=== PATIENT | male | born 1995 | race Caucasian/White ===

== ENCOUNTER 2020-09-10 01:33 | Emergency (ER) | payer OTHER, SELFPAY ==
--- NOTE | 2020-09-10 | ECG_ITS ---
Test Reason : CP Blood Pressure : / mmHG Vent. Rate : 092 BPM Atrial Rate : 092 BPM P-R Int : 144 ms QRS Dur : 092 ms QT Int : 346 ms P-R-T Axes : 060 068 038 degrees QTc Int : 427 ms Normal sinus rhythm Normal ECG When compared with ECG of 30-NOV-2016 23:45, No significant change was found Referred By: Generic ED Physician Electronically Signed By:ETTA RUSSELL
[2020-09-10 01:43] VITALS: BP 131/75; PULSE 94; RESP 16; TEMP 36.6; O2SAT 98; BMI 41.4
[2020-09-10 01:47] VITALS: PULSE 98
--- NOTE | 2020-09-10 01:48 | ED.CHESTPAIN ---
HPI - Chest Pain General Chief Complaint: Chest Pain Stated Complaint: Chest pain Time Seen by Provider: 09/10/20 01:45 Source: patient Mode of arrival: ambulatory Limitations: no limitations History of Present Illness HPI narrative: patient comes emergency room complaining of a pinching sensation in the middle of his chest. Patient states is intermittent, lasts for a few seconds, then goes away. Patient has been having the symptoms for 4 days. Patient denies any significant pain, no chest pressure, no shortness of breath. At this time, patient is asymptomatic. Patient denies trauma, no new exercises, states the patient is more pronounced when he stretches his left arm backwards. Related Data Allergies Allergy/AdvReac Type Severity Reaction Status Date / Time No Known Allergies Allergy Unverified 11/22/19 16:35 [No Known Allergies*] Review of Systems Review of Systems: Constitutional : No Weight loss, No Fever, No Chills, No Night Sweats, No Fatigue, No Malaise ENT/Mouth : No Hearing loss, No Ear Pain, No Nasal Congestion, No Sinus Pain, No Hoarseness, No sore throat, No Rhinorrhea, No Swallowing Difficulty Eyes: No Eye Pain, No Swelling, No Redness, No Foreign Body, No Discharge, No Vision Changes Cardiovascular : Intermittent pinching sensation lasting a few seconds, No SOB, No Dyspnea on Exertion, No Orthopnea, No Edema, No Palpitations Respiratory : No Cough, No Sputum, No Wheezing, No Smoke Exposure, No Dyspnea Gastrointestinal : No Nausea, No Vomiting, No Diarrhea, No Constipation, No abdominal Pain, No Hematochezia, No Melena Genitourinary : no irregular bleeding, No Dysuria, No Urinary Frequency, No Hematuria, No Urinary Incontinence, No Urgency, No Flank Pain, No Urinary Flow Changes, No Hesitancy Musculoskeletal : No joint pain, No Myalgias, No Joint Swelling Skin : No Skin Lesions, No rash Neuro : No Weakness, No Numbness, No Paresthesias, No Loss of Consciousness, No Dizziness, No Headache Psych : No Anxiety/Panic, No Depression, No SI/HI/AH/VH, No Social Issues, Heme/Lymph: No Bruising, No Bleeding,No Lymphadenopathy Endocrine : No Polyuria, No Polydipsia, No Temperature Intolerance ON LICENSE OF [facility] Social History Social History Advance Directives: No Advance Directives Information Provided: No Physical Exam Vital Signs: Vital Signs: Last Vital Signs Temp 97.9 F 09/10/20 01:43 Pulse 94 09/10/20 01:43 Resp 16 09/10/20 01:43 BP 131/75 09/10/20 01:43 Pulse Ox 98 09/10/20 01:43 Body Mass Index 41.4 Appearance: Alert. Oriented X3. No acute distress. Eyes: Pupils equal, round and reactive to light. ENT: Pharynx normal. Neck: Normal inspection. Neck supple. No lymph nodes noted. No crepitus CVS: Normal heart rate and rhythm. Pulses normal. Normal S1 and S2 Respiratory: No respiratory distress. Breath sounds normal. No Wheezing. No rales Abdomen: Soft and nontender. No rigidity. No distention. good BS x4 Skin: Skin warm and dry. Normal skin color. Normal skin turgor. Extremities: No lower extremity edema.No Lacerations. No Rash Neuro: Oriented X 3. No motor deficit. No sensory deficit. Moving all extermities. No slurred speech. Course Course Course Narrative: Patient remains asymptomatic at this time, EKG and troponin within normal limits. Wells score for PE is 0 MDM - Chest Pain Lab Data Result diagrams: 09/10/20 01:58 09/10/20 01:58 Labs: Lab Results 09/10/20 09/10/20 09/10/20 Range/Units 01:58 01:58 01:58 WBC 11.0 H (4.8-10.8) X10*3/uL RBC 5.10 (4.60-5.80) X10*6/uL Hgb 13.3 L (14.0-18.0) g/dl Hct 40.7 L (42-52) % MCV 79.8 L (80-98) fL MCH 26.1 L (27.0-33.0) pg MCHC 32.7 (31.0-36.0) g/dl RDW 14.7 (11.0-16.0) % Plt Count 279 (160-400) X10*3/uL MPV 9.1 L (9.4-12.4) fL Immature Gran % (Auto) 0.2 (0.0-0.4) % Neut % (Auto) 53.8 (45-73) % Lymph % (Auto) 35.7 (20-40) % [place] % (Auto) 9.6 (2-11) % Eos % (Auto) 0.4 (0-4) % Baso % (Auto) 0.3 (0-2) % Lymph # (Auto) 3.9 (1.2-4.9) X10*3/uL [place] # (Auto) 1.1 (0.1-1.2) X10*3/uL Eos # (Auto) 0.0 (0.0-0.4) X10*3/uL Baso # (Auto) 0.0 (0.0-0.2) X10*3/uL Abs Immat Gran (auto) 0.02 (0.00-0.03) X10*3/uL Absolute Neuts (auto) 6.0 (2.0-8.3) X10*3/uL Absolute Nucleated RBC 0.000 (0.0-0.012) X10*3/uL Nucleated RBC % (auto) 0.0 (0.0-0.2) /100WBC Sodium 141 (135-145) mmol/L Potassium 4.1 (3.3-5.1) mmol/L Chloride 101 (96-108) mmol/L Carbon Dioxide 30 H (22-29) mmol/L Anion Gap 14 (12-20) BUN 10 (9-16) mg/dL Creatinine 1.02 (0.5-1.4) mg/dL Estim Creat Clear Calc 153.2 Estimated GFR > 60 Random Glucose 91 (60-115) mg/dL Calcium 9.8 (8.4-10.2) mg/dL Troponin I High Sens < 3.5 (<3.5-35.0) ng/L ECG Data ECG #1: Attestation: I personally reviewed and interpreted this ECG as follows: ( Normal sinus rhythm, heart rate 92, no ST segment depression or elevation, no T-wave inversion, QTC 427) Discharge Plan Discharge Clinical Impression: Atypical chest pain Clinical Impression: (Ruled Out): ST elevation myocardial infarction (STEMI) Patient Disposition: Home, Self-Care Instructions: Chest Pain (ED) Additional Instructions: Please follow-up with your primary care physician tomorrow. If you have any worsening or new symptoms, please return to the emergency room or call 911
[2020-09-10 02:02] LABS: Basophils Percent Auto 0.3 % (0-2); Eosinophils Percent Auto 0.4 % (0-4); Hematocrit 40.7 % (42-52); Hemoglobin 13.3 g/dl (14.0-18.0); Imm Gran Abs Auto 0.02 X10*3/uL (0.00-0.03); Imm Gran Pct Auto 0.2 % (0.0-0.4); Lymphocytes Absolute Auto 3.9 X10*3/uL (1.2-4.9); Lymphocytes Percent Auto 35.7 % (20-40); MANUAL DIFF FLAG NO; Mean Corpuscular HGB Conc 32.7 g/dl (31.0-36.0); Mean Corpuscular Hemoglobin 26.1 pg (27.0-33.0); Mean Corpuscular Volume 79.8 fL (80-98); Mean Platelet Volume 9.1 fL (9.4-12.4); Monocytes Absolute Auto 1.1 X10*3/uL (0.1-1.2); Monocytes Percent Auto 9.6 % (2-11); Neutrophils Percent Auto 53.8 % (45-73); Platelet Count 279 X10*3/uL (160-400); Red Cell Distribution Width 14.7 % (11.0-16.0)
[2020-09-10 02:32] LABS: Anion Gap 14 (12-20); Blood Urea Nitrogen 10 mg/dL (9-16); Calcium 9.8 mg/dL (8.4-10.2); Carbon Dioxide 30 mmol/L (22-29); Chloride 101 mmol/L (96-108); Creatinine Clr Calc Pharmacy 153.2; Estimated Glomerular Filt Rate > 60; Glucose Random 91 mg/dL (60-115); Potassium 4.1 mmol/L (3.3-5.1); Sodium 141 mmol/L (135-145)
[2020-09-10 03:18] LABS: Troponin-I High Sensitivity < 3.5 ng/L (<3.5-35.0)
== END 2020-09-10 03:45 | disposition home or self-care (01) ==
PROVIDERS: Emergency Provider Emergency Medicine
DX: R07.89 Other chest pain (principal)
CPT/HCPCS: 36415; 80048; 84484; 85025; 93005; 99283; 99284

== ENCOUNTER → 2020-11-06 14:00 | Outpatient (REF) | payer OTHER, SELFPAY ==
--- NOTE | 2020-11-06 14:04 | CA_ITS ---
Transthoracic Echocardiogram Patient (Last, First, Middle): Natan Wahl, Gender: Male Date of : 1995 Age: 24 Procedure Date: 11/06/2020 Procedure Type: Transthoracic Echocardiogram Location: OP Height: 167.64 cm Weight: 122.47 kg BSA: 2.27 m2 Heart Rate: bpm BP: 114 / 50 mmHg [employer] Furnish[employer] Salesperson: HERBERT Redmond MD: José Sevilla PA-C Religious Ritual Slaughterer: Juan Miguel Sanchez MD Symptoms: R07.89 - Other chest pain Study Quality: Fair ECG Rhythm: Sinus Conclusions: - Normal study Findings Left Ventricle Normal left ventricular size, thickness, and systolic function. The visually estimated ejection fraction is between 60-65%. Regional wall motion abnormalities can not be excluded due to suboptimal endocardial definition. Spectral Doppler is indicative of a normal filling pattern. Right Ventricle Normal right ventricular cavity size and systolic function. Atria Both atria are normal in size. There is lipomatous hypertrophy of the interatrial septum. There is no evidence of interatrial shunt. Aortic Valve The aortic valve structure and function is likely normal. There is no aortic valve stenosis. There is no aortic valve regurgitation. Mitral Valve Normal mitral valve structure and function. There is trace mitral valve regurgitation. There is no mitral valve stenosis. Pulmonic Valve The pulmonic valve was not well visualized. Tricuspid Valve Likely normal tricuspid valve structure and function. There is trace tricuspid valve regurgitation. The right ventricular systolic pressure is normal. Normal right atrial pressure. There is no evidence of pulmonary hypertension. Great Vessels All visible segments of the aorta are normal in size. The pulmonary artery was not well visualized. Venous The inferior vena cava is normal in size and collapses greater than 50% with inspiration. Pericardium/Pleural There is no evidence of pericardial effusion. Prior Study Comparison No prior study available for comparison. Measurements 2D Linear Measurements RVIDd: 2.97 RVIDd Index: 1.31 IVSd: 0.97 0.6-0.9/0.6-1.0 cm LVIDd: 5.04 3.9-5.3/4.2-5.9 cm LVIDd Index: 2.22 2.4-3.2/2.2-3.1 cm/m2 LVIDs: 3.27 2.0-3.6 cm LVPWd: 1.26 0.7-1.1 cm Ao Root: 3.10 2.1-3.5 cm LA Diam: 3.80 2.7-3.8/3.0-4.0 cm LAIDs Index: 1.67 1.5-2.3 cm/m2 LV Mass: 266.96 67-162/88-224 g LV Mass Index: 117.60 43-95/49-115 g/m2 LVOT Diam: 2.10 3.0+(-)1.3 cm Mitral Valve MV Pk E: 0.86 MV PK A: 0.51 MV Decel Time: 245.00 E/A: 1.70 E'Lateral: 12.80 E'Medial: 10.60 E/E' Med: 8.10 E/E' Lat: 6.70 Aortic Valve AoV Pk James: 1.26 AoV Mn James: 0.91 AoV VTI: 0.26 AoV Pk Grad: 6.00 Aov Mn Grad: 4.00 UCHE Cont.VTI: 2.84 LVOT LVOT Pk James: 0.91 LVOT Mn James: 0.59 LVOT VTI: 0.21 LVOT Pk Grad: 3.00 LVOT Mn Grad: 2.00 LVOT Diam: 2.10 LVOT Area: 3.46 Diastolic Function MV Pk E: 0.86 MV Pk A: 0.51 E/A: 1.70 E'Medial: 10.60 E/E' Med: 8.10 E' Laterial: 12.80 E/E' Lat: 6.70 Right Ventricle TAPSE (mm): 18.00 TVS' James: 11.40 Tricuspid Valve RA Press: 3.00 Great Vessels Aorta Ao Root-2D: 3.10 2.0-3.7 cm Ao Asc: 2.70 2.1-3.4 cm Ao Arch: 2.30 Updated in Other Vendor System with Status of Final Juan Miguel Sanchez MD electronically signed on 11/07/2020 11:50:44 AM with status of Final
== END ==
LOC: HO.CARD 14:00
PROVIDERS: Visit Provider Physician Assistant
DX: R07.89 Other chest pain (principal)
CPT/HCPCS: 93306

== ENCOUNTER 2021-04-19 16:13 | Emergency (ER) | payer OTHER, SELFPAY ==
--- NOTE | ~2021-04-19 | XR_ITS ---
EXAMINATION: XR CHEST CLINICAL INFORMATION: Chest pain COMPARISON: 11/30/2016 TECHNIQUE: 2 views of the chest were obtained. FINDINGS: No significant abnormality is noted involving the heart, lungs, mediastinum, bony thorax or soft tissues. XR/XR chest 2V IMPRESSION: Unremarkable examination.
[2021-04-19 16:15] VITALS: BP 155/99; PULSE 95; RESP 20; TEMP 36.7; O2SAT 98; BMI 43.0
--- NOTE | 2021-04-19 16:15 | ECG_ITS ---
Test Reason : CHEST PAIN Blood Pressure : / mmHG Vent. Rate : 080 BPM Atrial Rate : 080 BPM P-R Int : 148 ms QRS Dur : 102 ms QT Int : 376 ms P-R-T Axes : 046 063 037 degrees QTc Int : 433 ms Normal sinus rhythm Normal ECG When compared with ECG of 10-SEP-2020 01:43, No significant change was found Referred By: Generic ED Physician Electronically Signed By:ELIANA ERIC MD
[2021-04-19 16:43] LABS: MANUAL DIFF FLAG NO
[2021-04-19 16:44] LABS: Basophils Percent Auto 0.2 % (0-2); Eosinophils Percent Auto 0.4 % (0-4); Hematocrit 40.2 % (42.0-52.0); Hemoglobin 13.1 g/dl (14.0-18.0); Imm Gran Abs Auto 0.02 X10*3/uL (0.00-0.03); Imm Gran Pct Auto 0.2 % (0.0-0.4); Lymphocytes Absolute Auto 2.2 X10*3/uL (1.2-4.9); Lymphocytes Percent Auto 24.5 % (20-40); Mean Corpuscular HGB Conc 32.6 g/dl (31.0-36.0); Mean Corpuscular Hemoglobin 25.9 pg (27.0-33.0); Mean Corpuscular Volume 79.4 fL (80.0-98.0); Mean Platelet Volume 9.3 fL (9.4-12.4); Monocytes Absolute Auto 0.5 X10*3/uL (0.1-1.2); Monocytes Percent Auto 4.9 % (2-11); Neutrophils Absolute Auto 6.4 x10*3/uL (2.0-8.3); Neutrophils Percent Auto 69.8 % (45-73); Platelet Count 277 X10*3/uL (160-400); Red Blood Count 5.06 X10*6/uL (4.60-5.80); Red Cell Distribution Width 15.1 % (11.0-16.0); White Blood Count 9.2 X10*3/uL (4.8-10.8)
[2021-04-19 17:05] LABS: Alanine Aminotransferase 20 U/L (0-40); Albumin Level 4.4 g/dL (3.5-5.0); Alkaline Phosphatase 84 U/L (39-117); Anion Gap 11 (12-20); Aspartate Amino Transferase 19 U/L (5-37); Bilirubin Direct < 0.2 mg/dL (0.0-0.5); Bilirubin Total 0.3 mg/dL (0.0-1.0); Blood Urea Nitrogen 13 mg/dL (9-16); Calcium 9.5 mg/dL (8.4-10.2); Carbon Dioxide 30 mmol/L (22-29); Chloride 103 mmol/L (96-108); Creatinine Clr Calc Pharmacy 171.7; Estimated Glomerular Filt Rate > 60; Glucose Random 99 mg/dL (60-115); Lipase 21 U/L (8-78); Potassium 4.5 mmol/L (3.3-5.1); Sodium 139 mmol/L (135-145); Total Protein 7.5 g/dL (6.5-8.0)
[2021-04-19 17:12] LABS: Troponin-I High Sensitivity < 3.5 ng/L (<3.5-35.0)
--- NOTE | 2021-04-19 17:43 | ED.CHESTPAIN ---
HPI - Chest Pain General Chief Complaint: Chest Pain Stated Complaint: chest pain Time Seen by Provider: 04/19/21 17:43 Source: patient Mode of arrival: ambulatory Limitations: no limitations History of Present Illness HPI narrative: 25-year-old male presents with several days of chest tightness that increases with movement. States that it feels more muscular skeletal, start sternal and radiates out to the left chest wall and arm. Does not report any other prodromal symptoms. 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 MD complaint: chest pain and chest discomfort Onset (ago): day(s) (2) Timing of current episode: constant Prior episodes: Yes Onset: during rest and during exertion Pain location: substernal and left chest Pain radiation: left arm Severity: mild Quality: tightness Relieving factors: rest Exacerbating factors: movement Treatment prior to arrival: other (Motrin) Risk Factors Coronary artery disease risk factors: none Thoracic aortic dissection risk factors: none Related Data Previous Rx's Medication Instructions Recorded hydroxyzine HCl 25 mg tablet 25 mg PO BID PRN 4 Days #8 tab 09/10/20 Allergies Allergy/AdvReac Type Severity Reaction Status Date / Time No Known Allergies Allergy Verified 09/10/20 16:30 [No Known Allergies*] Review of Systems Review of Systems: Constitutional: No Fever, No Chills ENT/Mouth: No Ear Pain, No Hoarseness, No sore throat Eyes: No Eye Pain, No Swelling, No Redness, No Foreign Body Cardiovascular: No Chest Pain, No SOB Respiratory: No Cough, No Dyspnea Gastrointestinal: No Nausea, No Vomiting, No Diarrhea, No abdominal Pain Genitourinary: No Dysuria, No Hematuria Musculoskeletal: positive chest wall pain, No Myalgias, No Joint Swelling Skin: No Skin lacerations, No rash Neuro: No Weakness, No Numbness, No Paresthesias, No Loss of Consciousness, No Dizziness, No Headache Psych: No Anxiety/Panic, No Depression Heme/Lymph: no easy bruising, no Lymphadenopathy Endocrine: No Polyuria, No Polydipsia Yes all other systems are reviewed and are negative PMFSH Past Medical History Attestation statement: The following information was validated with the patient. Source: old records reviewed Surgical History History of circumcision Family History Family History Mother Hypertension Father Diabetes Kidney failure Heart attack, Onset Age: 43 Social History Social History Housing: House Alcohol intake: current Alcohol intake frequency: holidays/special occasions only Patient Tobacco Use Status: Never used Tobacco Advance Directives: No Advance Directives Information Provided: Yes service: No Current occupational status: unemployed Physical Exam Vital Signs: Vital Signs: Last Vital Signs Temp 98.1 F 04/19/21 16:15 Pulse 95 04/19/21 16:15 Resp 20 04/19/21 16:15 BP 155/99 H 04/19/21 16:15 Pulse Ox 98 04/19/21 16:15 BMI result Body Mass Index 43.0 Appearance: Alert. Oriented X3. No acute distress. Eyes: Pupils equal, round and reactive to light. EOMI. Sclerae nonicteric ENT: Pharynx normal. Moist mucous membranes. Neck: Normal inspection. Neck supple. No vertebral tenderness or step-offs. No cervical lymphadenopathy. CVS: Normal heart rate and rhythm. Apical pulse equal pulses to extremities. No edema. Chest wall reproducibly tender to palpation. Respiratory: No respiratory distress. Breath sounds normal. Abdomen: Soft and nontender. Skin: Skin warm and dry. Normal skin color. Normal skin turgor. Extremities: Gait well-balanced well coordinated. Neuro: No motor deficit. No sensory deficit. Cranial nerves 2-12 intact. Course Course Course Narrative: 25-year-old male presents with chest wall pain that started approximately 2 days ago. Pain starts sternal radiates to the left pectoral muscle and down his left arm. Patient does not report any prodromal symptoms, denies shortness of breath, dizziness, lightheadedness, of breath on exertion, nausea, vomiting, changes in vision or any other concerning symptoms. Lab values drawn while patient was in the emergency department waiting room, H&H is 13.1/40.2 which is consistent with prior values dating back to 09/10/2020. Chemistries are unremarkable, troponin is negative. EKG is normal sinus with no changes compared to prior or indication of ST elevation or depression. Most likely to be costochondritis or musculoskeletal strain. Patient is agreeable to taking [id number] Motrin and Tylenol as needed for pain management. Id patient verbalizes understanding of and agrees plan of care discharge home. Patient also understands signs and symptoms indicating need for emergent intervention. MDM - Chest Pain Differential Diagnosis Differential diagnosis: Likely pneumothorax, atypical chest pain, st elevation myocardial infarction and chest pain Differential diagnosis: Musculoskeletal strain Medical Records Data Attestation: I reviewed the patient's medical records. Lab Data Attestation: I reviewed the patient's lab results. Result diagrams: 04/19/21 16:37 04/19/21 16:37 Labs: Lab Results 04/19/21 04/19/21 04/19/21 Range/Units 16:37 16:37 16:37 WBC 9.2 (4.8-10.8) X10*3/uL RBC 5.06 (4.60-5.80) X10*6/uL Hgb 13.1 L (14.0-18.0) g/dl Hct 40.2 L (42.0-52.0) % MCV 79.4 L (80.0-98.0) fL MCH 25.9 L (27.0-33.0) pg MCHC 32.6 (31.0-36.0) g/dl RDW 15.1 (11.0-16.0) % Plt Count 277 (160-400) X10*3/uL MPV 9.3 L (9.4-12.4) fL Immature Gran % (Auto) 0.2 (0.0-0.4) % Neut % (Auto) 69.8 (45-73) % Lymph % (Auto) 24.5 (20-40) % [place] % (Auto) 4.9 (2-11) % Eos % (Auto) 0.4 (0-4) % Baso % (Auto) 0.2 (0-2) % Lymph # (Auto) 2.2 (1.2-4.9) X10*3/uL [place] # (Auto) 0.5 (0.1-1.2) X10*3/uL Eos # (Auto) 0.0 (0.0-0.4) X10*3/uL Baso # (Auto) 0.0 (0.0-0.2) X10*3/uL Abs Immat Gran (auto) 0.02 (0.00-0.03) X10*3/uL Absolute Neuts (auto) 6.4 (2.0-8.3) x10*3/uL Absolute Nucleated RBC 0.000 (0.0-0.012) X10*3/uL Nucleated RBC % (auto) 0.0 (0.0-0.2) /100WBC Sodium 139 (135-145) mmol/L Potassium 4.5 (3.3-5.1) mmol/L Chloride 103 (96-108) mmol/L Carbon Dioxide 30 H (22-29) mmol/L Anion Gap 11 L (12-20) BUN 13 (9-16) mg/dL Creatinine 0.84 (0.5-1.4) mg/dL Estim Creat Clear Calc 171.7 Estimated GFR > 60 Random Glucose 99 (60-115) mg/dL Calcium 9.5 (8.4-10.2) mg/dL Total Bilirubin 0.3 (0.0-1.0) mg/dL Direct Bilirubin < 0.2 (0.0-0.5) mg/dL AST 19 (5-37) U/L ALT 20 (0-40) U/L Alkaline Phosphatase 84 (39-117) U/L Troponin I High Sens < 3.5 (<3.5-35.0) ng/L Total Protein 7.5 (6.5-8.0) g/dL Albumin 4.4 (3.5-5.0) g/dL Lipase 21 (8-78) U/L Imaging Data Chest x-ray: Attestation: I personally reviewed and interpreted this imaging study as follows: Radiologist's impression: EXAMINATION: XR CHEST CLINICAL INFORMATION: Chest pain COMPARISON: 11/30/2016 TECHNIQUE: 2 views of the chest were obtained. FINDINGS: No significant abnormality is noted involving the heart, lungs, mediastinum, bony thorax or soft tissues. XR/XR chest 2V IMPRESSION: Unremarkable examination. ECG Data ECG #1: Attestation: I personally reviewed and interpreted this ECG as follows: ECG interpretation date: 04/19/21 ECG interpretation time: 16:28 Prior ECG tracings: available for review Interpretation: Vent. rate 80 BPM NC interval 148 ms QRS duration 102 ms QT/QTc 376/433 ms P-R-T axes 46 63 37 Normal sinus rhythm Normal ECG When compared with ECG of 10-SEP-2020 01:43, No significant change was found Discharge Plan Discharge Clinical Impression: Non-cardiac chest pain, Costochondritis Patient Disposition: Home, Self-Care Instructions: Costochondritis (ED), Noncardiac Chest Pain (ED) Additional Instructions: You were evaluated for chest pain. EKG is normal sinus rhythm, troponin is negative. All other lab values are within your normal limits. Chest x-ray is negative Your chest pain is most likely costochondritis versus musculoskeletal strain. You must follow-up with primary care physician for further follow-up. Thank you for choosing this emergency department for evaluation. Please follow-up with primary care physician as needed. Return to the emergency department for any new, concerning, or worsening symptoms. Prescriptions: No Action hydroxyzine HCl 25 mg tablet 25 mg PO BID PRN (Reason: itching) 4 Days Qty: 8 0RF Interventions: ED Discharge Assessment Last Done: 04/19/21 18:15 Discharge Date/Time: 04/19/21 18:33
== END 2021-04-19 18:33 | disposition home or self-care (01) ==
PROVIDERS: Emergency Provider Emergency Medicine; PCP Physician Assistant
DX: R07.89 Other chest pain (principal); M79.602 Pain in left arm; M94.0 Chondrocostal junction syndrome [Tietze]; Z79.899 Other long term (current) drug therapy
CPT/HCPCS: 36415; 71046; 80048; 80076; 83690; 84484; 85025; 93005; 99284

== ENCOUNTER 2021-10-25 18:07 | Emergency (ER) | payer OTHER, SELFPAY ==
--- NOTE | ~2021-10-25 | CT_ITS ---
EXAMINATION: NONCONTRAST HEAD CT NONCONTRAST CERVICAL SPINE CT INDICATION INFORMATION: Fall COMPARISON: None TECHNIQUE: Separate noncontrast CT examinations of the head and cervical spine were performed. Coronal and sagittal images were created for each examination at the technologist workstation. This CT examination was performed using dose optimization techniques as appropriate, variously including the following: *Automated exposure control *Adjustment of mA and/or kV according to patient size (this includes techniques or standardized protocols for targeted exams where dose is matched to indication/reason for exam; i.e. extremities or head) *Use of iterative reconstruction technique DLP: 1624 mGy-cm FINDINGS: Head: There is no evidence of acute intracranial hemorrhage or territorial infarction. No abnormal mass effect or midline shift is seen. Garcia to white matter differentiation is well preserved. No extra-axial fluid collections are identified. No hydrocephalus. No significant volume loss. There is no abnormal attenuation within the brain parenchyma. No acute osseous or soft tissue abnormality. The mastoid air cells and visualized portions of the paranasal sinuses are well aerated. Cervical spine: There is anatomic alignment of the vertebral bodies and posterior elements. The atlantoaxial and atlantooccipital articulations are intact. Vertebral body heights and intervertebral disc spaces are maintained. No evidence of acute fracture. No prevertebral soft tissue swelling. Visualized portions of the lung apices are unremarkable. The thyroid gland is unremarkable. CT/CT head/brain wo con IMPRESSION: 1. No acute intracranial finding. 2. No fracture or malalignment of the cervical spine.
--- NOTE | ~2021-10-25 | CT_ITS ---
EXAMINATION: NONCONTRAST HEAD CT NONCONTRAST CERVICAL SPINE CT INDICATION INFORMATION: Fall COMPARISON: None TECHNIQUE: Separate noncontrast CT examinations of the head and cervical spine were performed. Coronal and sagittal images were created for each examination at the technologist workstation. This CT examination was performed using dose optimization techniques as appropriate, variously including the following: *Automated exposure control *Adjustment of mA and/or kV according to patient size (this includes techniques or standardized protocols for targeted exams where dose is matched to indication/reason for exam; i.e. extremities or head) *Use of iterative reconstruction technique DLP: 1624 mGy-cm FINDINGS: Head: There is no evidence of acute intracranial hemorrhage or territorial infarction. No abnormal mass effect or midline shift is seen. Garcia to white matter differentiation is well preserved. No extra-axial fluid collections are identified. No hydrocephalus. No significant volume loss. There is no abnormal attenuation within the brain parenchyma. No acute osseous or soft tissue abnormality. The mastoid air cells and visualized portions of the paranasal sinuses are well aerated. Cervical spine: There is anatomic alignment of the vertebral bodies and posterior elements. The atlantoaxial and atlantooccipital articulations are intact. Vertebral body heights and intervertebral disc spaces are maintained. No evidence of acute fracture. No prevertebral soft tissue swelling. Visualized portions of the lung apices are unremarkable. The thyroid gland is unremarkable. CT/CT cervical spine wo con IMPRESSION: 1. No acute intracranial finding. 2. No fracture or malalignment of the cervical spine.
[2021-10-25 20:42] VITALS: BP 122/70; PULSE 80; RESP 20; TEMP 36.6; O2SAT 98; BMI 41.1
--- NOTE | 2021-10-25 23:18 | ED.FALL ---
HPI - Fall General Chief Complaint: Fall Stated Complaint: fall t-1 headache and forearm abrasion Time Seen by Provider: 10/25/21 23:03 Source: patient Mode of arrival: ambulatory Limitations: no limitations History of Present Illness HPI Narrative: 25 yo male with no sig PMH here with c/o R forearm laceration superficial in nature 12+ hours ago already closed after cutting it on glass - also struck head when falling backwards feels whoozy with headache. complaint: fall Onset (ago): day(s) (2am today ) Fall from: standing Fall witnessed: yes, by bystander Place fall occurred: home Loss of consciousness: none Prolonged down time: no Symptoms prior to fall: none Context: tripped/slipped Location of injury: head and neck Location of injury - extremities: right: forearm Severity: moderate Quality: dull and aching Associated symptoms (after fall): headache and other (laceration) Related Data Previous Rx's Medication Instructions Recorded hydroxyzine HCl 25 mg tablet 25 mg PO BID PRN itching 4 days #8 09/10/20 tabs Allergies Allergy/AdvReac Type Severity Reaction Status Date / Time No Known Allergies Allergy Verified 09/10/20 16:30 [No Known Allergies*] Review of Systems Review of Systems: Constitutional : No Fever, No Chills, No Fatigue ENT/Mouth : No sore throat, No Rhinorrhea Eyes: No Eye Pain, No Swelling, No Redness Cardiovascular : No Chest Pain, No SOB, No Dyspnea on Exertion Respiratory : No Cough, No Sputum Gastrointestinal : No Nausea, No Vomiting, No Diarrhea, No abdominal Pain Genitourinary : No Dysuria, No Urinary Frequency, No Hematuria, Musculoskeletal : No joint pain, No Myalgias, No Joint Swelling Skin : No Skin Lesions, No rash, pos laceration Neuro : No Weakness, No Numbness, No Dizziness, positive Headache Psych : No Anxiety/Panic, No Depression Heme/Lymph: No Bruising, No Bleeding,No Lymphadenopathy Endocrine : No Polyuria, No Polydipsia All other systems reviewed and are negative PMF Past Medical History Medical History Anxiety Surgical History History of circumcision Family History Family History Mother Hypertension Father Diabetes Kidney failure Heart attack, Onset Age: 43 Social History Social History Housing: House Alcohol intake: current Alcohol intake frequency: holidays/special occasions only Patient Tobacco Use Status: Never used Tobacco Advance Directives: No Advance Directives Information Provided: No service: No Current occupational status: unemployed Physical Exam Vital Signs: Vital Signs: Last Vital Signs Temp 97.8 F 10/25/21 20:42 Pulse 80 10/25/21 20:42 Resp 20 10/25/21 20:42 BP 122/70 10/25/21 20:42 Pulse Ox 98 10/25/21 20:42 O2 Del Method 10/25/21 20:42 BMI result Body Mass Index 41.1 Appearance: Alert. Oriented X3. No acute distress. Eyes: Pupils equal, round and reactive to light. ENT: Pharynx normal. Contusion to posterior scalp Neck: Normal inspection. ttp lower cervical spine no step offs CVS: Normal heart rate and rhythm. Pulses normal. Respiratory: No respiratory distress. Breath sounds normal. Abdomen: Soft and nontender. Skin: Skin warm and dry. Normal skin color. Normal skin turgor. Extremities: No lower extremity edema. R posterior forearm well approximated old appearing 3cm linear laceration Neuro: Oriented X 3. No motor deficit. No sensory deficit. Course Course Course Narrative: CT head and cspine negative MDM - Fall MDM Narrative Medical decision making narrative: 25 yo male s/p fall with head strike no LOC but c/o headache and neck pain CT head/cspine ordered. Also has delayed 12+ hours of laceration to R forearm cannot close at this time and wound is healing well. No other injuries reported. Discharge Plan Discharge Clinical Impression: Forearm laceration Qualifiers: Encounter type: initial encounter Laterality: right Qualified Code(s): S51.811A - Laceration without foreign body of right forearm, initial encounter Head injury Qualifiers: Encounter type: initial encounter Qualified Code(s): S09.90XA - Unspecified injury of head, initial encounter Acute whiplash injury Qualifiers: Encounter type: initial encounter Qualified Code(s): S13.4XXA - Sprain of ligaments of cervical spine, initial encounter Patient Disposition: Home, Self-Care Instructions: Head Injury (ED), Laceration (ED), Cervical Strain (ED) Additional Instructions: return to ED for any worsening symptoms or concerns CT head and cervical spine normal no acute findings continue to keep laceration clean and covered do not go swimming until closed this will take about 7 days Prescriptions: No Action hydroxyzine HCl 25 mg tablet 25 mg PO BID PRN (Reason: itching) 4 Days Qty: 8 0RF Stand Alone Forms: Work/School Release
== END 2021-10-26 00:34 | disposition home or self-care (01) ==
PROVIDERS: Emergency Provider Emergency Medicine; PCP Physician Assistant
DX: S51.811A Laceration without foreign body of right forearm, initial encounter (principal); S50.811A Abrasion of right forearm, initial encounter; S09.90XA Unspecified injury of head, initial encounter; S13.4XXA Sprain of ligaments of cervical spine, initial encounter; R51.9 Headache, unspecified; M54.2 Cervicalgia; W25.XXXA Contact with sharp glass, initial encounter; Y93.9 Activity, unspecified; Y92.9 Unspecified place or not applicable; Y99.9 Unspecified external cause status; Z79.899 Other long term (current) drug therapy
CPT/HCPCS: 70450; 72125; 99282; 99283

== ENCOUNTER 2022-07-27 14:02 | Outpatient (REF) | payer OTHER, SELFPAY ==
[2022-07-27 14:16] LABS: MANUAL DIFF FLAG NO
[2022-07-27 15:11] LABS: Basophils Percent Auto 0.3 % (0-2); Eosinophils Percent Auto 0.5 % (0-4); Hematocrit 43.2 % (42.0-52.0); Hemoglobin 13.9 g/dl (14.0-18.0); Imm Gran Abs Auto 0.02 X10*3/uL (0.00-0.03); Imm Gran Pct Auto 0.3 % (0.0-0.4); Lymphocytes Absolute Auto 2.6 X10*3/uL (1.2-4.9); Lymphocytes Percent Auto 35.1 % (20-40); Mean Corpuscular HGB Conc 32.2 g/dl (31.0-36.0); Mean Corpuscular Hemoglobin 26.3 pg (27.0-33.0); Mean Corpuscular Volume 81.8 fL (80.0-98.0); Monocytes Absolute Auto 0.6 X10*3/uL (0.1-1.2); Monocytes Percent Auto 7.5 % (2-11); Neutrophils Absolute Auto 4.1 x10*3/uL (2.0-8.3); Neutrophils Percent Auto 56.3 % (45-73); Platelet Count 292 X10*3/uL (160-400); Red Blood Count 5.28 X10*6/uL (4.60-5.80); Red Cell Distribution Width 15.4 % (11.0-16.0); White Blood Count 7.3 X10*3/uL (4.8-10.8)
[2022-07-27 15:44] LABS: Alanine Aminotransferase 21 U/L (0-40); Albumin Level 4.5 g/dL (3.5-5.0); Alkaline Phosphatase 79 U/L (39-117); Anion Gap 13 (12-20); Aspartate Amino Transferase 16 U/L (5-37); Bilirubin Total 0.4 mg/dL (0.0-1.0); Blood Urea Nitrogen 10 mg/dL (9-16); Calcium 9.8 mg/dL (8.4-10.2); Carbon Dioxide 30 mmol/L (22-29); Chloride 104 mmol/L (96-108); Estimated Glomerular Filt Rate > 60; Glucose Fasting 79 mg/dL (60-99); Magnesium 2.1 mg/dL (1.6-2.6); Potassium 4.6 mmol/L (3.3-5.1); Sodium 142 mmol/L (135-145); Total Protein 7.6 g/dL (6.5-8.0)
[2022-07-27 16:12] LABS: Folate 12.8 ng/mL (> or = 4.0); TSH reflex Free T4 1.17 uIU/mL (0.32-4.0); Vitamin B12 495 pg/mL (200-900); Vitamin D 25-OH Total 9.5 ng/mL (>30)
== END 2022-07-27 14:03 | disposition home or self-care (01) ==
LOC: HO.LAB 14:02
PROVIDERS: PCP Physician Assistant; Visit Provider Nurse Practitioner Family
DX: Z00.00 Encounter for general adult medical examination without abnormal findings (principal); M54.2 Cervicalgia; Z13.29 Encounter for screening for other suspected endocrine disorder; E55.9 Vitamin D deficiency, unspecified; E66.01 Morbid (severe) obesity due to excess calories
CPT/HCPCS: 36415; 80053; 82306; 82607; 82746; 83735; 84443; 85025

== ENCOUNTER → 2022-08-05 09:57 | Outpatient (BNVA) | payer OTHER, SELFPAY | PROVIDERS: PCP Physician Assistant; Visit Provider Dietitian, Registered | DX: E66.01 Morbid (severe) obesity due to excess calories (principal); Z68.41 Body mass index [BMI] 40.0-44.9, adult | CPT/HCPCS: 97802 ==

== ENCOUNTER 2022-10-05 14:35 | Outpatient (AMB) | payer OTHER, SELFPAY ==
[2022-10-05 14:39] VITALS: BMI 43.9
--- NOTE | 2022-10-05 14:39 | A.OFFVIS_ITS ---
Intake VS Expanded 10/05/22 14:39 Height 5 ft 6 in Weight 272 lb 0.807 oz BMI 43.9 Intake Visit Reasons: obesity Allergies No Known Allergies [No Known Allergies*] Allergy (Verified 07/27/22 13:45) HPI Nutrition Presentation Details Pt presents for MNT follow up for obesity Pt reports working n meal planning. Was on vacation recently. C/o increased appetite Trying new food combination: flavors Most Recent Diabetes Results: Creatinine 0.83 mg/dL (0.5-1.4) 07/27/22 Blood Urea Nitrogen 10 mg/dL (9-16) 07/27/22 Sodium 142 mmol/L (135-145) 07/27/22 Potassium 4.6 mmol/L (3.3-5.1) 07/27/22 Chloride 104 mmol/L (96-108) 07/27/22 Carbon Dioxide 30 mmol/L (22-29) H 07/27/22 Calcium 9.8 mg/dL (8.4-10.2) 07/27/22 AST 16 U/L (5-37) 07/27/22 ALT 21 U/L (0-40) 07/27/22 Total Protein 7.6 g/dL (6.5-8.0) 07/27/22 Albumin 4.5 g/dL (3.5-5.0) 07/27/22 [facility] Medical History Anxiety Surgical History History of circumcision Family History Mother Hypertension Father Diabetes Kidney failure Heart attack, Onset Age: 43 Social History Housing: House Alcohol intake: current Alcohol intake frequency: holidays/special occasions only Patient Tobacco Use Status: Never used Tobacco service: No Current occupational status: unemployed Cognitive needs: No Hearing needs: No Vision needs: No Assessment & Plan Assessment & Plan (1) Morbid obesity with BMI of 40.0-44.9, adult: Code(s): E66.01 - Morbid (severe) obesity due to excess calories; Z68.41 - Body mass index [BMI] 40.0-44.9, adult Plan: Used weight: 123 kg Est kcal needs as per MSJ: 2589 (40% carb, 30% protein/fat) Est fluid needs as per 25-30 ml/d: 3075- 3690 Est prot per day as per 1 g/kg bw: 123 g/d Recommend fiber intake : 8-10 g per day and gradually increase to 35-38 g for men or as tolerated Recommend sodium intake per day : less than 2000 mg Educated patient on: ( R = reviewed V = verbalizes understanding N/R = needs review N/A = not applicable * Food sources of carbohydrate, adequate serving sizes and its role in various health conditions: R * Differences between complex carbohydrates a simple carbohydrates, role of fiber in diet: R * Differences between types of fats and role in diet (mono on saturated fat fatty acids, saturated fatty acids, trans fats): R basic low-fat concepts * Food sources of sodium in salt and healthy modifications for heart health in kidney health: NR * Healthy plate method concept: R * Physical activity: Benefits a precaution: NR Patient Instructions: Choose small plate in a consistent manner Read food labels, work on reducing sugars from sauces Goal by next follow up 5-8 lbs less Coding Level of Care Code Nutr Indiv Subseq (41258) Diagnoses Morbid obesity with BMI of 40.0-44.9, adult E66.01; Z68.41 Time Spent (min) 30
== END 2022-10-05 15:09 | disposition home or self-care (01) ==
PROVIDERS: PCP Physician Assistant; Visit Provider Dietitian, Registered
DX: E66.01 Morbid (severe) obesity due to excess calories (principal); Z68.41 Body mass index [BMI] 40.0-44.9, adult

== ENCOUNTER → 2022-10-05 14:35 | Outpatient (BNVA) | payer OTHER, SELFPAY | PROVIDERS: PCP Physician Assistant; Visit Provider Dietitian, Registered | DX: E66.9 Obesity, unspecified (principal); Z68.41 Body mass index [BMI] 40.0-44.9, adult; Z71.3 Dietary counseling and surveillance | CPT/HCPCS: 97803 ==

== ENCOUNTER 2022-12-06 13:58 | Outpatient (AMB) | payer OTHER, SELFPAY ==
[2022-12-06 14:05] VITALS: BMI 43.3
--- NOTE | 2022-12-06 14:05 | A.OFFVIS_ITS ---
Intake VS Expanded 12/06/22 14:05 Height 5 ft 6 in Weight 268 lb 4.841 oz BMI 43.3 Intake Visit Reasons: obesity/ Confirmed Allergies No Known Allergies [No Known Allergies*] Allergy (Verified 07/27/22 13:45) HPI Nutrition Presentation Details Pt presents tp MNT f/u for obesity Pt reports working on reducing on snack, feeling comfortable with modifications beverages: water with flavors , diluting juices with water 74 oz of fluid per day physical activity: weight lifting and cardio 5 times weeks 45 minutes EPTH/SMoking: denies Most Recent Diabetes Results: Creatinine 0.83 mg/dL (0.5-1.4) 07/27/22 Blood Urea Nitrogen 10 mg/dL (9-16) 07/27/22 Sodium 142 mmol/L (135-145) 07/27/22 Potassium 4.6 mmol/L (3.3-5.1) 07/27/22 Chloride 104 mmol/L (96-108) 07/27/22 Carbon Dioxide 30 mmol/L (22-29) H 07/27/22 Calcium 9.8 mg/dL (8.4-10.2) 07/27/22 AST 16 U/L (5-37) 07/27/22 ALT 21 U/L (0-40) 07/27/22 Total Protein 7.6 g/dL (6.5-8.0) 07/27/22 Albumin 4.5 g/dL (3.5-5.0) 07/27/22 PFSH Medical History Anxiety Surgical History History of circumcision Family History Mother Hypertension Father Diabetes Kidney failure Heart attack, Onset Age: 43 Social History Housing: House Alcohol intake: current Alcohol intake frequency: holidays/special occasions only Patient Tobacco Use Status: Never used Tobacco service: No Current occupational status: unemployed Cognitive needs: No Hearing needs: No Vision needs: No Assessment & Plan Assessment & Plan (1) Morbid obesity with BMI of 40.0-44.9, adult: Code(s): E66.01 - Morbid (severe) obesity due to excess calories; Z68.41 - Body mass index [BMI] 40.0-44.9, adult Plan: Used weight: 123 kg Est kcal needs as per MSJ: 2589 (40% carb, 30% protein/fat) Est fluid needs as per 25-30 ml/d: 3075- 3690 Est prot per day as per 1 g/kg bw: 123 g/d Recommend fiber intake : 8-10 g per day and gradually increase to 35-38 g for men or as tolerated Recommend sodium intake per day : less than 2000 mg Educated patient on: ( R = reviewed V = verbalizes understanding N/R = needs review N/A = not applicable * Food sources of carbohydrate, adequate serving sizes and its role in various health conditions: R * Differences between complex carbohydrates a simple carbohydrates, role of fiber in diet: R * Differences between types of fats and role in diet (mono on saturated fat fatty acids, saturated fatty acids, trans fats): R basic low-fat concepts * Food sources of sodium in salt and healthy modifications for heart health in kidney health: NR * Healthy plate method concept: R * Physical activity: Benefits a precaution: NR Patient Instructions: Switch to smaller plate for second servings/ switch to smaller cups Drink more water as you increase on your vegetables and fiber intake to prevent constipation Take vitamin D aim at reaching 100% daily value of vitamin D (fortified foods : low fat milk/yogurt/almond milk) goal 5-8 lbs weight loss by next follow up Coding Level of Care Code Nutr Indiv Subseq (92313) Diagnoses Morbid obesity with BMI of 40.0-44.9, adult E66.01; Z68.41 Time Spent (min) 20
== END 2022-12-06 14:25 | disposition home or self-care (01) ==
PROVIDERS: PCP Physician Assistant; Visit Provider Dietitian, Registered
DX: E66.01 Morbid (severe) obesity due to excess calories (principal); Z68.41 Body mass index [BMI] 40.0-44.9, adult

== ENCOUNTER → 2022-12-06 13:58 | Outpatient (BNVA) | payer OTHER, SELFPAY | PROVIDERS: PCP Physician Assistant; Visit Provider Dietitian, Registered | DX: E66.01 Morbid (severe) obesity due to excess calories (principal); Z68.41 Body mass index [BMI] 40.0-44.9, adult; Z71.3 Dietary counseling and surveillance | CPT/HCPCS: 97803 ==

== ENCOUNTER 2022-12-21 22:57 | Emergency (ER) | payer OTHER, SELFPAY ==
--- NOTE | 2022-12-21 | ECG_ITS ---
Test Reason : CHEST PAIN Blood Pressure : / mmHG Vent. Rate : 086 BPM Atrial Rate : 086 BPM P-R Int : 152 ms QRS Dur : 094 ms QT Int : 360 ms P-R-T Axes : 062 063 055 degrees QTc Int : 430 ms Normal sinus rhythm Normal ECG When compared with ECG of 19-APR-2021 16:28, No significant change was found Referred By: Generic ED Physician Electronically Signed By:GISELLE CABRERA MD
[2022-12-21 23:07] VITALS: BP 141/81; PULSE 92; RESP 18; TEMP 36.6; O2SAT 98; BMI 42.8
[2022-12-22 01:45] LABS: MANUAL DIFF FLAG NO
[2022-12-22 01:46] LABS: Basophils Percent Auto 0.3 % (0-2); Eosinophils Absolute Auto 0.1 X10*3/uL (0.0-0.4); Eosinophils Percent Auto 0.8 % (0-4); Hematocrit 43.9 % (42.0-52.0); Hemoglobin 14.1 g/dl (14.0-18.0); Imm Gran Abs Auto 0.03 X10*3/uL (0.00-0.03); Imm Gran Pct Auto 0.3 % (0.0-0.4); Lymphocytes Percent Auto 30.1 % (20-40); Mean Corpuscular HGB Conc 32.1 g/dl (31.0-36.0); Mean Corpuscular Hemoglobin 25.9 pg (27.0-33.0); Mean Corpuscular Volume 80.7 fL (80.0-98.0); Mean Platelet Volume 9.2 fL (9.4-12.4); Monocytes Absolute Auto 0.8 X10*3/uL (0.1-1.2); Neutrophils Percent Auto 60.5 % (45-73); Platelet Count 277 X10*3/uL (160-400); Red Blood Count 5.44 X10*6/uL (4.60-5.80); Red Cell Distribution Width 15.4 % (11.0-16.0); White Blood Count 9.9 X10*3/uL (4.8-10.8)
[2022-12-22 01:57] LABS: Anion Gap 15 (12-20); Blood Urea Nitrogen 8 mg/dL (9-16); Carbon Dioxide 27 mmol/L (22-29); Chloride 104 mmol/L (96-108); Creatinine Clr Calc Pharmacy 179.9; Estimated Glomerular Filt Rate > 60; Glucose Random 101 mg/dL (60-115); Potassium 4.6 mmol/L (3.3-5.1); Sodium 141 mmol/L (135-145)
[2022-12-22 02:11] LABS: Troponin-I High Sensitivity < 2.7 ng/L (<3.5-35.0)
[2022-12-22 02:15] VITALS: BP 122/70; PULSE 76; RESP 22; TEMP 36.7; O2SAT 98
--- NOTE | 2022-12-22 02:50 | ED.CHESTPAIN ---
HPI - Chest Pain General Chief Complaint: Chest Pain Stated Complaint: Chest pain Time Seen by Provider: 12/22/22 02:47 Source: patient Mode of arrival: ambulatory Limitations: no limitations History of Present Illness HPI narrative: 27 yo male with hx of chest pain here with c/o L sided chest pain worse with laying on side and movements - no dyspnea, fevers, recent URI, no travel or procedures. has had this before MD complaint: chest pain Onset (ago): week(s) (1) Timing of current episode: episodic Prior episodes: Yes Onset: during rest Pain location: left chest Pain radiation: none Severity: mild Quality: aching Relieving factors: nothing Exacerbating factors: palpation and movement Treatment prior to arrival: none Related Data Previous Rx's Medication Instructions Recorded diclofenac sodium 1 % topical gel 2 g topical QID PRN pain #100 grams 07/27/22 (Arthritis Pain (diclofenac)) cholecalciferol (vitamin D3) 50 50 mcg PO DAILY #90 tabs 08/11/22 mcg (2,000 unit) tablet Allergies Allergy/AdvReac Type Severity Reaction Status Date / Time No Known Allergies Allergy Verified 12/21/22 23:11 [No Known Allergies*] Review of Systems Review of Systems: Constitutional : No Weight loss, No Fever, No Chills ENT/Mouth : No sore throat, No Rhinorrhea Eyes: No Eye Pain, No Swelling Cardiovascular : pos Chest Pain, no SOB, no Dyspnea on Exertion, No Orthopnea, No Edema, No Palpitations Respiratory : No Cough, No Sputum Gastrointestinal : no Nausea, No Vomiting, No Diarrhea, No abdominal Pain, No Hematochezia, No Melena Genitourinary : No Dysuria, No Urinary Frequency Musculoskeletal : No joint pain, No Myalgias, No Joint Swelling Skin : No Skin Lesions, No rash Neuro : No Weakness, No Numbness, No Dizziness, No Headache All other systems reviewed and are negative [facility] Past Medical History Medical History Anxiety Surgical History History of circumcision Family History Family History Mother Hypertension Father Diabetes Kidney failure Heart attack, Onset Age: 43 Social History Social History Housing: House Alcohol intake: never Patient Tobacco Use Status: Never used Tobacco Smoked in Last 30 Days: No Use of substances other than those prescribed or required for medical reasons: No Advance Directives: No Advance Directives Information Provided: No service: No Current occupational status: unemployed Cognitive needs: No Hearing needs: No Vision needs: No Physical Exam Vital Signs: Vital Signs: Last Vital Signs Temp 98.1 F 12/22/22 02:15 Pulse 76 12/22/22 02:15 Resp 22 H 12/22/22 02:15 BP 122/70 12/22/22 02:15 Pulse Ox 98 12/22/22 02:15 O2 Del Method Room Air 12/22/22 02:15 BMI result Body Mass Index 42.8 Appearance: Alert. Oriented X3. No acute distress. Eyes: Pupils equal, round and reactive to light. ENT: Pharynx normal. Neck: Normal inspection. Neck supple. CVS: Normal heart rate and rhythm. Pulses normal. Respiratory: No respiratory distress. Breath sounds normal. Abdomen: Soft and nontender. Skin: Skin warm and dry. Normal skin color. Normal skin turgor. Extremities: No lower extremity edema. No calf ttp Neuro: Oriented X 3. No motor deficit. No sensory deficit. Medical Decision Making Medical Decision Making [facility] Narrative: 27 yo male with prior chest pain here with 1 week on and off chest pain L side worse with movements and stretching arm - no recent travel, infections, hx of early CAD in family at this time EKG and troponin ordered. It sound more MSK in nature. Distal pulses intact doubt dissection. Differential Diagnosis Differential Diagnoses: The differential diagnosis associated with the presentation includes MSK pain, doubt VTE, no risk factors for ACS Admission/Observation Consideration of admission/observation: Escalation of care including admission/observation considered Lab Data [facility] Lab Attestation statement: I reviewed the patient's lab results. 12/22/22 01:41 12/22/22 01:41 Labs: Lab Results 12/22/22 Range/Units 01:41 WBC 9.9 (4.8-10.8) X10*3/uL RBC 5.44 (4.60-5.80) X10*6/uL Hgb 14.1 (14.0-18.0) g/dl Hct 43.9 (42.0-52.0) % MCV 80.7 (80.0-98.0) fL MCH 25.9 L (27.0-33.0) pg MCHC 32.1 (31.0-36.0) g/dl RDW 15.4 (11.0-16.0) % Plt Count 277 (160-400) X10*3/uL MPV 9.2 L (9.4-12.4) fL Immature Gran % (Auto) 0.3 (0.0-0.4) % Neut % (Auto) 60.5 (45-73) % Lymph % (Auto) 30.1 (20-40) % [place] % (Auto) 8.0 (2-11) % Eos % (Auto) 0.8 (0-4) % Baso % (Auto) 0.3 (0-2) % Lymph # (Auto) 3.0 (1.2-4.9) X10*3/uL [place] # (Auto) 0.8 (0.1-1.2) X10*3/uL Eos # (Auto) 0.1 (0.0-0.4) X10*3/uL Baso # (Auto) 0.0 (0.0-0.2) X10*3/uL Abs Immat Gran (auto) 0.03 (0.00-0.03) X10*3/uL Absolute Neuts (auto) 6.0 (2.0-8.3) x10*3/uL Absolute Nucleated RBC 0.000 (0.0-0.012) X10*3/uL Nucleated RBC % (auto) 0.0 (0.0-0.2) /100WBC Sodium 141 (135-145) mmol/L Potassium 4.6 (3.3-5.1) mmol/L Chloride 104 (96-108) mmol/L Carbon Dioxide 27 (22-29) mmol/L Anion Gap 15 (12-20) BUN 8 L (9-16) mg/dL Creatinine 0.76 (0.5-1.4) mg/dL Estim Creat Clear Calc 179.9 Estimated GFR > 60 Random Glucose 101 (60-115) mg/dL Calcium 10.0 (8.4-10.2) mg/dL Troponin I High Sens < 2.7 (<3.5-35.0) ng/L Independent Interpretation I performed an independent interpretation of an: EKG Interpretation: Rate: 86 Rhythm: NSR [place]: normal Normal P waves. Normal DELFINO. Normal QRS complex. ST T wave : normal no LEANDRA qTC: normal prior studies: no acute ischemia The study has been interpreted contemporaneously by me. . Independent Historian Clinical information obtained from an independent historian. History obtained from or confirmed by: Parent External Record Review External record reviewed: Inpatient record Tests considered The following testing was considered but not selected: CXR but lungs clear not indicated Discharge Plan Discharge Clinical Impression: Atypical chest pain Patient Disposition: Home, Self-Care Instructions: Chest Pain (ED) Additional Instructions: return for worsening pain, shortness of breath, vomiting, fainting, severe pain or any other concerns. follow up with your doctor if this continues for further workup. Prescriptions: No Action cholecalciferol (vitamin D3) 50 mcg (2,000 unit) tablet 50 mcg PO DAILY Qty: 90 0RF diclofenac sodium [Arthritis Pain (diclofenac)] 1 % gel 2 g topical QID PRN (Reason: pain) Qty: 100 0RF
--- NOTE | 2022-12-22 03:05 | PC.NURSE ---
pt a&ox4. respirations even and unlabored. lung sounds clear bilaterally. pt reports one week of left sided chest pain that is intermittent. pt reports it will radiate into the left arm at time. pt denies radiation to jaw. pt denies nausea, vomiting and diarrhea. pt normal sinus on tele.
== END 2022-12-22 03:14 | disposition home or self-care (01) ==
PROVIDERS: Emergency Provider Emergency Medicine; PCP Physician Assistant
DX: R07.89 Other chest pain (principal)
CPT/HCPCS: 36415; 80048; 84484; 85025; 93005; 99283; 99285

== ENCOUNTER 2023-03-08 11:58 | Outpatient (AMB) | payer OTHER, SELFPAY ==
--- NOTE | 2023-03-08 12:20 | A.OFFVIS_ITS ---
Intake VS Expanded 03/08/23 12:21 Height 5 ft 6 in Weight 274 lb 11.135 oz BMI 44.3 Intake Visit Reasons: Obesity/CONFIRMED Allergies No Known Allergies [No Known Allergies*] Allergy (Verified 12/21/22 23:11) HPI Nutrition Presentation Details Pt presents for MNT f/u for obesity Physical activity : was participating in weight training and cardio 4 days a week (30-45 minutes), however not in the past month fluid: consuming up to 80 oz water/day Admits to dietary indiscretion during holiday celebration protein: poultry/yogurt with granola, eggs (reports working towards 112 g/day,, meets 50-70% of the time) water: 80 oz/day fruits/d: 2/d fish : 0-1/wk Most Recent Diabetes Results: Creatinine 0.76 mg/dL (0.5-1.4) 12/22/22 Blood Urea Nitrogen 8 mg/dL (9-16) L 12/22/22 Sodium 141 mmol/L (135-145) 12/22/22 Potassium 4.6 mmol/L (3.3-5.1) 12/22/22 Chloride 104 mmol/L (96-108) 12/22/22 Carbon Dioxide 27 mmol/L (22-29) 12/22/22 Calcium 10.0 mg/dL (8.4-10.2) 12/22/22 AST 16 U/L (5-37) 07/27/22 ALT 21 U/L (0-40) 07/27/22 Total Protein 7.6 g/dL (6.5-8.0) 07/27/22 Albumin 4.5 g/dL (3.5-5.0) 07/27/22 [facility] [place] Medical History Anxiety Surgical History History of circumcision Family History Mother Hypertension Father Diabetes Kidney failure Heart attack, Onset Age: 43 Social History Housing: House Alcohol intake: never Patient Tobacco Use Status: Never used Tobacco service: No Current occupational status: unemployed Cognitive needs: No Hearing needs: No Vision needs: No Assessment & Plan Assessment & Plan (1) Morbid obesity with BMI of 40.0-44.9, adult: Code(s): E66.01 - Morbid (severe) obesity due to excess calories; Z68.41 - Body mass index [BMI] 40.0-44.9, adult Plan: Used weight: 123 kg (10/2022), 120 kg (12/2022), 124 kg (03/2023) Est kcal needs as per MSJ: 2589 (40% carb, 30% protein/fat) Est fluid needs as per 25-30 ml/d: 3075- 3690 Est prot per day as per 1 g/kg bw: 123 g/d Recommend fiber intake : 8-10 g per day and gradually increase to 35-38 g for men or as tolerated Recommend sodium intake per day : less than 2000 mg Educated patient on: ( R = reviewed V = verbalizes understanding N/R = needs review N/A = not applicable * Food sources of carbohydrate, adequate serving sizes and its role in various health conditions: R * Differences between complex carbohydrates a simple carbohydrates, role of fiber in diet: R * Differences between types of fats and role in diet (mono on saturated fat fatty acids, saturated fatty acids, trans fats): R basic low-fat concepts * Food sources of sodium in salt and healthy modifications for heart health in kidney health: R * Healthy plate method concept: R * Physical activity: Benefits a precaution: R * mindful eating : R Patient Instructions: Resume physical activity - walk 1 hour 4 -5 times/wk Have a meal replacement at lunch once a day consecutively Coding Level of Care Code Nutr Indiv Subseq (40154) Diagnoses Morbid obesity with BMI of 40.0-44.9, adult E66.01; Z68.41 Time Spent (min) 30
[2023-03-08 12:21] VITALS: BMI 44.3
== END 2023-03-08 12:55 | disposition home or self-care (01) ==
PROVIDERS: PCP Physician Assistant; Visit Provider Dietitian, Registered
DX: E66.01 Morbid (severe) obesity due to excess calories (principal); Z68.41 Body mass index [BMI] 40.0-44.9, adult

== ENCOUNTER → 2023-03-08 11:58 | Outpatient (BNVA) | payer SELFPAY | PROVIDERS: PCP Physician Assistant; Visit Provider Dietitian, Registered | DX: E66.01 Morbid (severe) obesity due to excess calories (principal); Z68.41 Body mass index [BMI] 40.0-44.9, adult; Z71.3 Dietary counseling and surveillance | CPT/HCPCS: 97803 ==